=== PATIENT | female | born 1960 | race Caucasian/White ===

== ENCOUNTER 2016-12-02 10:53 | Emergency (ER) | payer BC ==
[2016-12-02 10:56] VITALS: TEMP 98.1
[2016-12-02] MEDS ORDERED: NS 1,000 ML IV ONE (11:34)
[2016-12-02 11:40] LABS: % IMMATURE GRANULYOCYTES 0.5 % (0.0-1.1); ABSOLUTE IMMATURE GRANULOCYTES 0.04 10^3/uL (0.00-0.10); ADD DIFF? NO; ADD MORPH? NO; ADD SCAN? NO; ATYPICAL LYMPHOCYTE FLAG 0 (0-99); FRAGMENT RBC FLAG 0 (0-99); HEMATOCRIT 41.6 % (38.0-47.0); HEMOGLOBIN 13.8 g/dL (12.6-16.3); LEFT SHIFT FLG 0 (0-99); LIPEMIA HEMOLYSIS FLAG 80 (0-99); MEAN CELL HEMOGLOBIN 29.6 pg (27.9-34.1); MEAN CELL HEMOGLOBIN CONCENTR. 33.2 g/dL (32.4-36.7); MEAN CELL VOLUME 89.3 fL (81.5-99.8); MEAN PLATELET VOLUME 9.9 fL (8.7-11.7); PLATELET CLUMPS FLAG 10 (0-99); PLATELET COUNT 166 10^3/uL (150-400); RED BLOOD CELL COUNT 4.66 10^6/uL (4.18-5.33); RED CELL DISTRIBUTION WIDTH 13.3 % (11.5-15.2)
[2016-12-02] MEDS ORDERED: DIAZEPAM 10 MG/2 ML SYR IVP ONE (11:51)
[2016-12-02 12:02] LABS: ALANINE AMINOTRANSFERASE 39 IU/L (9-52); ALBUMIN 4.8 g/dL (3.5-5.0); ALKALINE PHOSPHATASE 55 IU/L (38-126); ANION GAP 17 mEq/L (8-16); ASPARTATE AMINOTRANSFERASE 29 IU/L (14-46); BILIRUBIN,TOTAL 0.7 mg/dL (0.1-1.4); BILIRUBIN-CONJUGATED 0.3 mg/dL (0.0-0.5); BILIRUBIN-UNCONJUGATED 0.4 mg/dL (0.0-1.1); CALCIUM 9.4 mg/dL (8.5-10.4); CARBON DIOXIDE 20 mEq/l (22-31); CHLORIDE 105 mEq/L (97-110); CREATININE 0.7 mg/dL (0.6-1.0); GLOMERULAR FILTRATION RATE > 60; GLUCOSE 178 mg/dL (70-100); POTASSIUM 4.3 mEq/L (3.5-5.2); SODIUM 142 mEq/L (134-144); TOTAL PROTEIN 7.6 g/dL (6.3-8.2)
[2016-12-02] MEDS ORDERED: LORazepam 2 MG/ML INJ IVP ONE (12:46)
[2016-12-02 14:01] VITALS: RESP 16
[2016-12-02] MEDS ORDERED: ASPIRIN 81 MG CHEWABLE TAB PO ONE (14:28)
--- NOTE | 2016-12-02 14:48 | EDPHY ---
H & P Smoking Status: Never smoked Time Seen by Provider: 12/02/16 11:21 HPI/ROS: CHIEF COMPLAINT: Nausea, vomiting HISTORY OF PRESENT ILLNESS: 56-year-old female presents to the emergency department feeling nauseous and have multiple episodes of vomiting. The patient has had similar symptoms in the past. She has a history of "stomach migraines". She denies abdominal pain. No diarrhea. No fevers or chills. No reported trauma. She states that she drank a large amount of wine last night which is unusual for her and she thinks this may have triggered her vomiting. She states the Valium typically helps with her symptoms. She denies headache. Denies recent travel. No fevers or chills. No rash. No back pain or urinary symptoms. REVIEW OF SYSTEMS: Constitutional: No fever, no chills. Eyes: No double or blurry vision. ENT: No sore throat. Respiratory: No cough, no shortness of breath. Cardiac: No chest pain. Gastrointestinal: Nausea, vomiting. No diarrhea. Genitourinary: No dysuria. Musculoskeletal: No neck or back pain. Skin: No rashes. Neurological: No headache. (Helga Aragon) Past Medical/Surgical History: Hypothyroidism, "stomach migraines" (Helga Aragon) Social History: (Helga Aragon) Physical Exam: General Appearance: Alert, actively vomiting. Eyes: Pupils equal and round. Extraocular motions are all intact. ENT: Mouth: Mucous membranes appear dry Respiratory: No wheezing, rhonchi, or rales, lungs are clear to auscultation. Cardiovascular: Regular rate and rhythm. Gastrointestinal: Abdomen is soft and nontender, no masses, no rebound or guarding, bowel sounds normal. No CVA tenderness bilaterally. Neurological: Alert and oriented x 3, cranial nerves II through XII grossly intact Skin: Warm and dry, no rashes. Musculoskeletal: Nontender to palpate along the cervical, thoracic or lumbar spine. Neck is supple. Extremities: Full range of motion and no peripheral edema. Psychiatric: Patient is oriented X 3, there is no agitation. (Helga Aragon) Constitutional: Initial Vital Signs Temperature (C) 36.7 C 12/02/16 10:54 Heart Rate 79 12/02/16 10:54 Respiratory Rate 18 12/02/16 10:54 Blood Pressure 128/83 H 12/02/16 10:54 O2 Sat (%) 94 12/02/16 10:54 O2 Delivery Mode Room Air O2 (L/minute) 2 Allergies/Adverse Reactions: No Known Allergies Allergy (Verified 12/02/16 10:54) Home Medications: Medication Instructions Recorded Levothyroxine [Synthroid 100 mcg 100 mcg PO DAILY06 12/02/16 (*)] Medical Decision Making ED Course/Re-evaluation: Laboratory studies were within normal limits. She had an IV established and was given 5 mg of IV Valium and IV normal saline. She was feeling better and then developed recurring nausea and vomiting. She was given 1 mg of Ativan IV. It has been over 1 hour now since she last vomited. She has been resting is feeling comfortable. She will be p.o. challenged and will be discharged if she tolerates p.o. fluids. Upon discharge patient was feeling much better. She is drinking samson jhon. She is comfortable being discharged home with her . I encouraged close follow-up with her primary care provider. (Helga Aragon) Differential Diagnosis: Including but not limited to dehydration, gastritis, gastroenteritis, bowel obstruction, colitis, acute appendicitis, pancreatitis, cholecystitis, GERD, cyclical vomiting syndrome (Helga Aragon) Other Provider: The patient was evaluated and managed by the Physician It Manager/ Nurse Practitioner. My co-signature indicates that I have reviewed this chart and I agree with the findings and plan of care as documented. I am the secondary supervising physician. (Marga Mao) - Data Points Laboratory Results: Laboratory Results 12/02/16 11:15 12/02/16 11:15 Medications Given: Discontinued Medications Diazepam (Valium Injection) 5 mg IVP EDNOW ONE Stop: 12/02/16 11:52 Last Admin: 12/02/16 11:55 Dose: 5 mg Sodium Chloride (Ns) 1,000 mls @ 0 mls/hr IV EDNOW ONE; Wide Open PRN Reason: Protocol Stop: 12/02/16 11:35 Last Admin: 12/02/16 11:50 Dose: 1,000 mls Lorazepam (Ativan Injection) 1 mg IVP EDNOW ONE Stop: 12/02/16 12:47 Last Admin: 09/17/17 13:09 Dose: 1 mg Departure - Departure Disposition: Home, Routine, Self-Care Clinical Impression: Vomiting Condition: Good Instructions: Acute Nausea and Vomiting (ED) Additional Instructions: Clear liquids and then slowly advance diet as tolerated. Referrals: Leana Perdue MD [Primary Care Provider] - 1-2 days without fail
[2016-12-02 15:52] VITALS: BP 104/59; PULSE 80; O2SAT 98
== END 2016-12-02 15:52 | disposition home or self-care (01) ==
PROC: 3E0337Z Introduction of Electrolytic and Water Balance Substance into Peripheral Vein, Percutaneous Approach (ICD-10-PCS; principal; 2016-12-02)
DX: R11.10 Vomiting, unspecified (principal); E86.9 Volume depletion, unspecified
CPT/HCPCS: 96374; J2060

== ENCOUNTER 2017-09-24 15:33 | Emergency (ER) | payer OTHER, BC ==
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
[2017-09-24 17:45] VITALS: BP 135/80
== END 2017-09-24 17:48 | disposition home or self-care (01) ==
LOC: EDUNIT#
DX: S62.307A Unspecified fracture of fifth metacarpal bone, left hand, initial encounter for closed fracture (principal); S16.1XXA Strain of muscle, fascia and tendon at neck level, initial encounter; S09.90XA Unspecified injury of head, initial encounter; V49.49XA Driver injured in collision with other motor vehicles in traffic accident, initial encounter; Y92.410 Unspecified street and highway as the place of occurrence of the external cause; Y99.8 Other external cause status; Y93.89 Activity, other specified

== ENCOUNTER 2018-07-16 12:56 | Day surgery (SDC) | payer BC ==
[2018-07-16] MEDS ORDERED: LR 1,000 ML IV ONE (13:14)
[2018-07-16] MEDS ORDERED: LIDOCAINE 1% 2 ML INJ ID PRN (13:14)
[2018-07-16] MEDS ORDERED: MIDAZOLAM 2 MG/2 ML VIAL IVP ONE (13:15)
[2018-07-16] MEDS ORDERED: PROPOFOL/EMULSION 500 MG/50 ML BOTTLE IV ONE (14:07)
[2018-07-16] MEDS ORDERED: BUPIVACAINE 0.25% 30 ML SDV ONE (14:08)
[2018-07-16] MEDS ORDERED: ROPIVACAINE HCL 150 MG/30 ML INJ ONE (14:09)
[2018-07-16] MEDS ORDERED: BUPIVACAINE 0.5% 30 ML SDV ONE (14:09)
[2018-07-16] MEDS ORDERED: DEXAMETHASONE 4 MG/ML VIAL ONE (14:10)
[2018-07-16] MEDS ORDERED: BACITRACIN 50,000 UNITS/10 ML SYR IRR ONE (14:10)
[2018-07-16] MEDS ORDERED: VANCOMYCIN 1 GM VIAL ONE (14:10)
[2018-07-16] MEDS ORDERED: LIDOCAINE 1% 300 MG/30 ML SDV ONE (14:14)
[2018-07-16] MEDS ORDERED: ceFAZolin 1 GM VIAL ONE (14:51)
[2018-07-16] MEDS ORDERED: ONDANSETRON 4 MG/2 ML VIAL IVP PRN (14:52)
[2018-07-16] MEDS ORDERED: ACETAMINOPHEN 500 MG TAB PO PRN (14:52)
[2018-07-16] MEDS ORDERED: oxyCODONE IR 5 MG TAB PO PRN (14:52)
[2018-07-16] MEDS ORDERED: NALOXONE HCL 0.4 MG/ML INJ IVP PRN (14:52)
[2018-07-16] MEDS ORDERED: LR 500 ML IV PRN (14:52)
[2018-07-16] MEDS ORDERED: fentaNYL 100 MCG/2 ML INJ IVP PRN (14:52)
[2018-07-16] MEDS ORDERED: HYDROmorphONE/DILAUDID 1 MG/ML INJ IVP PRN (14:52)
[2018-07-16] MEDS ORDERED: HYDROCODONE/APAP 5/325 TAB PO PRN (14:52)
== END 2018-07-16 15:53 | disposition home or self-care (01) ==
DX: M20.41 Other hammer toe(s) (acquired), right foot (principal); L97.512 Non-pressure chronic ulcer of other part of right foot with fat layer exposed; L08.9 Local infection of the skin and subcutaneous tissue, unspecified; G60.9 Hereditary and idiopathic neuropathy, unspecified